=== PATIENT | male | born 1980 | race American Indian/Alaskan Native ===

== ENCOUNTER 2018-02-02 19:47 | Emergency (ER) | payer SELFPAY ==
[2018-02-02] MEDS ORDERED: ASPIRIN PO ONE (20:23)
[2018-02-02 20:40] LABS: Basophils % (Auto) 0.6 % (0.0-1.8); Eosinophils % (Auto) 0.4 % (0.0-4.3); Hematocrit 39.1 % (35.5-45.6); Hemoglobin 13.2 gm/dl (11.8-15.2); Lymphocytes # (Auto) 2.9 K/mm3 (1.2-5.4); Lymphocytes % (Auto) 49.5 % (13.4-35.0); Mean Corpuscular HGB Conc 34 % (32-34); Mean Corpuscular Hemoglobin 32 pg (28-32); Mean Corpuscular Volume 94 fl (84-94); Monocytes # (Auto) 0.3 K/mm3 (0.0-0.8); Monocytes % (Auto) 4.9 % (0.0-7.3); Platelet Count 206 K/mm3 (140-440); Red Blood Count 4.14 M/mm3 (3.65-5.03); Red Cell Distribution Width 13.5 % (13.2-15.2)
[2018-02-02 20:53] LABS: BUN/Creatinine Ratio 5; Blood Urea Nitrogen 4 mg/dL (9-20); Calcium 9.5 mg/dL (8.4-10.2); Hemolysis Index 6
--- NOTE | 2018-02-02 21:42 | XRay Report ---
FINAL REPORT EXAM: XR CHEST ROUTINE 2V HISTORY: CP TECHNIQUE: PA and lateral views of the chest Comparison: None FINDINGS: There is no evidence of infiltrate, pneumothorax or pleural fluid collection. The cardiomediastinal silhouette is normal in appearance. The bony structures are unremarkable. IMPRESSION: 1. No evidence of an acute pulmonary process.
--- NOTE | 2018-02-02 21:56 | Emergency Department Report ---
ED Chest Pain HPI - General Chief Complaint: Chest Pain Stated Complaint: CHEST PAIN Time Seen by Provider: 02/02/18 21:54 Source: patient Mode of arrival: Ambulatory Limitations: No Limitations - History of Present Illness Initial Comments: Patient is 37 years old male with history of testicular cancer 7 years ago in complete remission. Patient presented to the ER complaining of chest pain, sharp in nature is no radiation associated with some sweating. Patient stated that pain is mainly at night. Patient stated that pain started 3 weeks ago, intermittent. Patient denied any shortness of breath or fever. MD Complaint: chest pain -: week(s) ( 3 wks) Onset: during rest Pain Location: substernal Pain Radiation: none Severity: mild Severity scale (0 -10): 4 Quality: sharp Improves With: nothing - Related Data Allergies Allergy/AdvReac Type Severity Reaction Status Date / Time No Known Allergies Allergy Verified 02/02/18 22:01 Heart Score - HEART Score History: Slightly suspicious EKG: Non-specific Age: < 45 Risk factors: No known risk factors Troponin: < normal limit HEART Score: 1 - Critical Actions Critical Actions: 0-3 pts:0.9-1.7%risk of adverse cardiac event.Candidate for discharge ED Review of Systems ROS: Stated complaint: CHEST PAIN Other details as noted in HPI Comment: All other systems reviewed and negative Constitutional: denies: chills, fever Respiratory: denies: cough, orthopnea, shortness of breath, SOB with exertion, SOB at rest Cardiovascular: chest pain. denies: palpitations, dyspnea on exertion Gastrointestinal: denies: abdominal pain, nausea, vomiting, diarrhea, constipation, hematemesis, hematochezia Musculoskeletal: denies: back pain Neurological: denies: headache, weakness, numbness, paresthesias, confusion, abnormal gait ED Past Medical Hx - Past Medical History Hx of Cancer: Yes (Right testicle) - Surgical History Additional Surgical History: Right tesicle removal - Social History Smoking Status: Current Every Day Smoker Substance Use Type: Marijuana ED Physical Exam - General Limitations: No Limitations General appearance: alert, in no apparent distress - Head Head exam: Present: atraumatic, normocephalic, normal inspection - Eye Eye exam: Present: normal appearance, PERRL - ENT ENT exam: Present: normal exam, normal orophraynx, mucous membranes moist - Neck Neck exam: Present: normal inspection, full ROM. Absent: tenderness, meningismus, lymphadenopathy, thyromegaly - Respiratory Respiratory exam: Present: normal lung sounds bilaterally - Cardiovascular Cardiovascular Exam: Present: tachycardia - GI/Abdominal GI/Abdominal exam: Present: soft, normal bowel sounds. Absent: distended, tenderness, guarding, rebound, rigid - Extremities Exam Extremities exam: Present: normal inspection, full ROM, normal capillary refill. Absent: pedal edema, calf tenderness - Back Exam Back exam: Present: normal inspection, full ROM. Absent: tenderness, CVA tenderness (R), CVA tenderness (L), muscle spasm, paraspinal tenderness, vertebral tenderness - Neurological Exam Neurological exam: Present: alert, oriented X3, CN II-XII intact, normal gait, reflexes normal - Skin Skin exam: Present: warm, intact, normal color ED Course Vital Signs 02/02/18 02/02/18 20:12 22:25 Temperature 98.2 F Pulse Rate 107 H 81 Respiratory 18 17 Rate Blood Pressure 136/97 Blood Pressure 128/91 [Left] O2 Sat by Pulse 98 98 Oximetry ED Medical Decision Making - Lab Data Result diagrams: 02/02/18 20:27 02/02/18 20:27 - EKG Data -: EKG Interpreted by Ak EKG shows normal: sinus rhythm Rate: tachycardia - EKG Data Interpretation: no acute changes - Radiology Data Radiology results: report reviewed Referring Physician: STEPHANY GARCIA Patient Name: YANET OGLESBY Date of : 1980 Sex: Male Report Date: 2018-02-02 Report Status: Finalized Findings [address] [address] XRay Report Signed Patient: YANET OGLESBY JR MR#: [id number] : 1980 Acct:[id number] Age/Sex: 37 / M ADM Date: 02/02/18 Loc: ED Attending Dr: Ordering Physician: STEPHANY GARCIA Date of Service: 02/02/18 Procedure(s): XR chest routine 2V Accession Number(s): [id number] cc: STEPHANY GARCIA Fluoro Time In Minutes: FINAL REPORT EXAM: XR CHEST ROUTINE 2V HISTORY: CP TECHNIQUE: PA and lateral views of the chest Comparison: None FINDINGS: There is no evidence of infiltrate, pneumothorax or pleural fluid collection. The cardiomediastinal silhouette is normal in appearance. The bony structures are unremarkable. IMPRESSION: 1. No evidence of an acute pulmonary process. Transcribed By: ED Dictated By: FUNMILAYO WILDER MD Electronically Authenticated By: FUNMILAYO WILDER MD Signed Date/Time: 02/02/182140 DD/ 40 TD/TT: 02/02/182140 - Medical Decision Making Mr Oglesby is 37 years old male with history of testicular cancer 7 years ago in complete remission. Patient presented to the ER complaining of chest pain, sharp in nature is no radiation associated with some sweating. Patient stated that pain is mainly at night. Patient stated that pain started 3 weeks ago, intermittent. Patient denied any shortness of breath or fever. Patient observed in the ER. library monitor did not show any Arrhythmias. Labs is negative so far including d-dimer, CBC BMP and thyroid panel. I advised patient to follow-up with his primary care physician for possible Holter monitor. I also advised him to return to the ER if his symptoms get worse. Critical care attestation.: If time is entered above; I have spent that time in minutes in the direct care of this critically ill patient, excluding procedure time. ED Disposition Clinical Impression: Palpitation Disposition: DC-01 TO HOME OR SELFCARE Is pt being admited?: No Condition: Stable Instructions: Palpitations (ED) Referrals: JANAK LAMB MD [Primary Care Provider] - 3-5 Days YEIMI JONES MD [Staff Physician] - 3-5 Days
[2018-02-02 22:27] VITALS: BP 128/91
[2018-02-02 22:40] LABS: Alanine Aminotransferase 92 units/L (7-56); Albumin 4.4 g/dL (3.9-5)
[2018-02-02 22:42] LABS: Bilirubin,Direct < 0.2 mg/dL (0-0.2)
[2018-02-02 22:47] LABS: Free T4 (Free Thyroxine) 1.45 ng/dL (0.76-1.46)
[2018-02-02 22:57] LABS: Bilirubin,Urine NEG (Negative); Blood,Urine NEG (Negative); Color,Urine Yellow (Yellow); Mucus,Urine FEW /HPF; Protein,Urine <15 mg/dL mg/dL (Negative)
[2018-02-02 23:01] LABS: Amphetamine Screen,Urine PRESUMPTIVE NEGATIVE; Benzodiazepines Screen,Urine PRESUMPTIVE NEGATIVE; Cannabinoid Screen,Urine PRESUMPTIVE NEGATIVE; Cocaine Screen,Urine PRESUMPTIVE NEGATIVE; Methadone Screen,Urine PRESUMPTIVE NEGATIVE; Opiate Screen,Urine PRESUMPTIVE NEGATIVE
== END 2018-02-02 23:59 | disposition home or self-care (01) ==
LOC: ED 19:47
DX: R07.89 Other chest pain (principal); R20.2 Paresthesia of skin; F17.200 Nicotine dependence, unspecified, uncomplicated; F12.10 Cannabis abuse, uncomplicated; Z90.79 Acquired absence of other genital organ(s); Z79.899 Other long term (current) drug therapy
CPT/HCPCS: 36415; 71046; 80048; 80074; 80307; 81001; 83880; 84439; 84443; 84484; 85025; 85379; 93005; 93010; 99284

== ENCOUNTER 2018-08-16 00:30 | Emergency (ER) | payer OTHER ==
--- NOTE | 2018-08-16 01:49 | XRay Report ---
PROCEDURE: XR FOOT 3+V RT TECHNIQUE: 3 views of the right foot were obtained. HISTORY: right foot swelling and pain COMPARISONS: None FINDINGS: There is no evidence of acute fracture or soft tissue injury. On the lateral view there is an ossicle at the level of the talonavicular joint. IMPRESSION: No acute injury identified.. This document is electronically signed by Angelo Arellano MD., August 16 2018 01:47:30 AM ET
[2018-08-16] MEDS ORDERED: NORCO 7.5/325 PO ONE (02:29)
[2018-08-16 03:50] LABS: Hematocrit 37.6 % (35.5-45.6); Hemoglobin 12.6 gm/dl (11.8-15.2); Red Blood Count 3.94 M/mm3 (3.65-5.03)
[2018-08-16 03:51] LABS: Mean Corpuscular HGB Conc 34 % (32-34); Mean Corpuscular Volume 95 fl (84-94); Platelet Count 254 K/mm3 (140-440); Red Cell Distribution Width 14.3 % (13.2-15.2)
--- NOTE | 2018-08-16 03:57 | Emergency Department Report ---
ED Lower Extremity HPI - General Chief Complaint: Extremity Injury, Lower Stated Complaint: FOOT SWELLING Time Seen by Provider: 08/16/18 02:25 Source: patient Mode of arrival: Ambulatory Limitations: No Limitations - History of Present Illness Initial Comments: MR VIVAS IS A PLEASANT 38 YO MALE CO FOOT PAIN. NO TRAUMA. INLAWS IN TOWN AND HES BEEN DOING A LOT OF GRILLING AND DRINKING BEER. NO FALL. NO TRAUMA. AMBULATORY WITH A LIMP AND OBVIOUS PAIN. NO DEFORMITY PMH NONE PSH NONE RX NONE POS ETOH -: days(s) (6) Place: home Severity: moderate Improves With: nothing Worsens With: movement Treatments Prior to Arrival: NSAIDS - Related Data Previous Rx's Medication Instructions Recorded Last Taken Type Colchicine 0.6 mg PO DAILY #11 capsule 08/16/18 Unknown Rx Naproxen [Naprosyn] 500 mg PO BID PRN #20 tablet 08/16/18 Unknown Rx predniSONE [Deltasone] 20 mg PO DAILY #5 tablet 08/16/18 Unknown Rx traMADol [Ultram] 50 mg PO Q6HR PRN #12 tablet 08/16/18 Unknown Rx Allergies Allergy/AdvReac Type Severity Reaction Status Date / Time No Known Allergies Allergy Verified 02/02/18 22:01 ED Review of Systems ROS: Stated complaint: FOOT SWELLING Other details as noted in HPI Comment: All other systems reviewed and negative ED Past Medical Hx - Past Medical History Previous Medical History?: No - Surgical History Past Surgical History?: Yes Additional Surgical History: Right tesicle removal, Right knee hardware - Social History Smoking Status: Current Every Day Smoker Substance Use Type: None - Medications Home Medications: Home Medications Medication Instructions Recorded Confirmed Last Taken Type Colchicine 0.6 mg PO DAILY #11 capsule 08/16/18 Unknown Rx Naproxen [Naprosyn] 500 mg PO BID PRN #20 tablet 08/16/18 Unknown Rx predniSONE [Deltasone] 20 mg PO DAILY #5 tablet 08/16/18 Unknown Rx traMADol [Ultram] 50 mg PO Q6HR PRN #12 tablet 08/16/18 Unknown Rx ED Physical Exam - General Limitations: No Limitations General appearance: alert - Head Head exam: Present: atraumatic, normocephalic - Eye Eye exam: Present: normal appearance, PERRL - ENT ENT exam: Present: mucous membranes moist - Neck Neck exam: Present: normal inspection - Respiratory Respiratory exam: Present: normal lung sounds bilaterally - Cardiovascular Cardiovascular Exam: Present: regular rate - GI/Abdominal GI/Abdominal exam: Present: soft - Rectal Rectal exam: Present: deferred - Expanded Lower Extremity Exam Right Foot/Toe exam: Present: full ROM (W PAIN), tenderness, swelling, erythema. Absent: abrasion, laceration, ecchymosis, deformity, crepidus, dislocation, amputation, puncture wound, foreign body, calcaneal tenderness, tenderness at base of 5th metatarsal, nail avulsion, subungual hematoma Neuro vascular tendon exam: Present: no vascular compromise Gait: Positive: observed and limited by pain - Back Exam Back exam: Present: normal inspection - Neurological Exam Neurological exam: Present: alert, oriented X3, normal gait ED Course Vital Signs 08/16/18 08/16/18 08/16/18 00:41 01:10 03:08 Temperature 98.4 F Pulse Rate 89 90 Respiratory 18 20 20 Rate Blood Pressure 142/108 142/108 O2 Sat by Pulse 100 98 Oximetry 08/16/18 03:55 Temperature Pulse Rate Respiratory 20 Rate Blood Pressure O2 Sat by Pulse Oximetry - Reevaluation(s) Reevaluation #1: 08/17/18 REPEAT BP AFTER PAIN MED 150/90 PER PROVIDER ED Lower Extremity MDM - Lab Data Result diagrams: 08/16/18 03:06 08/16/18 03:06 - Radiology Data Radiology results: report reviewed, image reviewed - Medical Decision Making XRAY NEG FOR FRACTURE Lab Results 08/16/18 08/16/18 Range/Units 03:06 03:06 WBC 7.1 (4.5-11.0) K/mm3 RBC 3.94 (3.65-5.03) M/mm3 Hgb 12.6 (11.8-15.2) gm/dl Hct 37.6 (35.5-45.6) % MCV 95 H (84-94) fl MCH 32 (28-32) pg MCHC 34 (32-34) % RDW 14.3 (13.2-15.2) % Plt Count 254 (140-440) K/mm3 Sodium 141 (137-145) mmol/L Potassium 4.1 (3.6-5.0) mmol/L Chloride 103.8 (98-107) mmol/L Carbon Dioxide 21 L (22-30) mmol/L Anion Gap 20 mmol/L BUN 9 (9-20) mg/dL Creatinine 0.7 L (0.8-1.5) mg/dL Estimated GFR > 60 ml/min BUN/Creatinine Ratio 13 % Glucose 89 (75-100) mg/dL Uric Acid 8.3 H (3.5-7.6) mg/dL Calcium 9.7 (8.4-10.2) mg/dL Total Bilirubin 0.50 (0.1-1.2) mg/dL AST 56 H (5-40) units/L ALT 69 H (7-56) units/L Alkaline Phosphatase 59 (35-129) units/L Total Protein 8.1 (6.3-8.2) g/dL Albumin 4.6 (3.9-5) g/dL Albumin/Globulin Ratio 1.3 % PAIN IS CONSISTENT WITH GOUT LARGE TOE R FOOT IS RED AND SWOLLEN PAINFUL TO TOUCH AMBULATORY WITH LIMP DIET CHANGE WITH FAMILY VISITING DP PLUS 2 RAPID CAP REFILL FULL ROM LIMITED BY PAIN MEDICATED FOR PAIN BP NOTED ELEVATED DISCUSSED WITH PT DISCUSSED DIET CHANGES - FAT AND SALT NO CP NO SOB NO HEADACHE NO FOCAL NEURO DEF CN INTACT WILL DC HOME WITH DC PLAN OF CARE - Differential Diagnosis RO FX Critical care attestation.: If time is entered above; I have spent that time in minutes in the direct care of this critically ill patient, excluding procedure time. ED Disposition Clinical Impression: Gout, Foot pain, Elevated blood pressure reading Disposition: DC-01 TO HOME OR SELFCARE Is pt being admited?: No Does the pt Need Aspirin: No Condition: Stable Instructions: Acute Gouty Arthritis (ED) Additional Instructions: meds as ordered today follow your blood pressure it was high today hydrate well with water low salt low fat diet exercise daily limit red meat and beer PCP referral below XRAY TODAY WAS NORMAL Prescriptions: Colchicine 0.6 mg PO DAILY #11 capsule predniSONE [Deltasone] 20 mg PO DAILY #5 tablet Naproxen [Naprosyn] 500 mg PO BID PRN #20 tablet PRN Reason: Pain traMADol [Ultram] 50 mg PO Q6HR PRN #12 tablet PRN Reason: Pain Referrals: [facility] [Outside] - 3-5 Days Forms: Work/School Release Form(ED) Time of Disposition: 03:55
[2018-08-16 04:37] LABS: Alanine Aminotransferase 69 units/L (7-56); Albumin 4.6 g/dL (3.9-5); BUN/Creatinine Ratio 13; Blood Urea Nitrogen 9 mg/dL (9-20); Calcium 9.7 mg/dL (8.4-10.2)
[2018-08-16 04:38] LABS: Hemolysis Index 3
[2018-08-16 04:47] LABS: Uric Acid 8.3 mg/dL (3.5-7.6)
[2018-08-17 18:06] VITALS: BP 142/108
== END 2018-08-16 04:05 | disposition home or self-care (01) ==
LOC: ED 00:30
DX: M10.9 Gout, unspecified (principal); F17.200 Nicotine dependence, unspecified, uncomplicated
CPT/HCPCS: 36415; 80053; 84550; 85027